=== PATIENT | male | born 1940 | race Caucasian/White ===

== ENCOUNTER 2019-03-14 13:04 | Emergency (ER) | payer MEDICARE ==
[~2019-03-14] VITALS: Ht 182.9 cm; Wt 107.5 kg
[2019-03-14 13:11] VITALS: Ht 182.9 cm; Wt 107.5 kg
[2019-03-14 15:42] LABS: microscopic required? YES; urine erythrocyte TRACE (NEGATIVE)
[2019-03-14 15:43] LABS: BASOPHIL % 0.7 % (0-2); PLATELET COUNT 216 x10^3mcL (130-400); RED CELL DISTRIBUTION WIDTH 14.3 % (11.5-14.5)
[2019-03-14 15:48] LABS: CALCIUM 9.3 mg/dL (8.5-10.1); CARBON DIOXIDE 23.6 mmol/L (21-32); CHLORIDE SERUM 100 mmol/L (98-107); CREATININE SERUM 1.1 mg/dL (0.7-1.3); GLUCOSE SERUM 127 mg/dL (74-106); SODIUM SERUM 136 mmol/L (136-145)
[2019-03-14 15:53] LABS: ALBUMIN 3.7 g/dL (3.4-5.0); ALKALINE PHOSPHATASE 65 U/L (46-116); ALT/SGPT 37 U/L (16-63); AST/SGOT 33 U/L (15-37); BILIRUBIN TOTAL 0.8 mg/dL (0.20-1.00); TOTAL PROTEIN, SERUM 7.4 g/dL (6.4-8.2)
[2019-03-14 17:13] LABS: URIC ACID 5.4 mg/dL (3.5-7.2)
[2019-03-14 17:14] LABS: C REACTIVE PROTEIN 13.4 mg/dL (<=0.9)
[2019-03-15 00:40] VITALS: BP 147/57
== END 2019-03-15 00:40 | disposition short-term general hospital (02) ==
LOC: ED 13:04
PROVIDERS: Emergency Medicine
DX: I96 Gangrene, not elsewhere classified (principal); E11.9 Type 2 diabetes mellitus without complications
CPT/HCPCS: J2405; J2543; J3010; J3370; J3490